=== PATIENT | male | born 1960 | race Caucasian/White ===

== ENCOUNTER 2018-06-26 18:22 | Emergency (ER) | payer OTHER ==
[~2018-06-26] VITALS: Ht 177.8 cm; Wt 95.3 kg
[2018-06-26] MEDS ORDERED: IV NORMAL SALINE 1000ML BAG 1,000 ML IV ONE (18:30)
--- NOTE | 2018-06-26 18:33 | EKG ---
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
--- NOTE | 2018-06-26 18:53 | PHYS DOC ---
Past Medical History Additional Past Medical Histor: Liver Failure, Hepatitis C Past Medical History Unable to fully obtain due to altered mental status Additional Past Surgical Histo: TIPS procedure Past Surgical History Unable to fully obtain due to altered mental status Social History Unable to fully obtain due to altered mental status Adult General Chief Complaint Chief Complaint: ALTERED MENTAL STATUS HPI HPI 58-year-old male presents via EMS for altered mental status. Patient apparently was supposed to be transferred to but was diverted to [facility] due to patient becoming combative. EMS reportedly gave 5 mg of Versed prior to arrival. EMS reports patient with history of elevated liver enzymes and has been acting similar to prior episodes when his ammonia level is elevated. No history of known trauma. Patient extremely poor historian due to obtunded state. History of present illness limited. Review of Systems Review of Systems Neurologic: Reports altered mental status[] Review of systems limited due to obtunded state and altered mental status. Current Medications Current Medications Current Medications Medications (Trade) Dose Ordered Sig/Nichole Start Time Stop Time Status Last Admin Dose Admin Lactulose (Lactulose) 30 gm 1X ONCE 06/26/18 20:00 06/26/18 20:09 DC Ondansetron HCl (Zofran) 4 mg 1X ONCE 06/26/18 20:00 06/26/18 20:09 DC 06/26/18 21:34 4 MG Potassium Chloride/Water 100 ml @ 100 mls/hr 1X ONCE 06/26/18 22:00 06/26/18 22:59 06/26/18 21:37 100 MLS/HR Potassium Chloride (KCl Oral Soln) 40 meq 1X ONCE 06/26/18 20:00 06/26/18 20:09 DC Sodium Chloride 1,000 ml @ 1,000 mls/hr 1X ONCE 06/26/18 18:30 06/26/18 19:29 DC 06/26/18 19:54 1,000 MLS/HR Allergies Allergies Allergies Coded Allergies Type Severity Reaction Last Updated Verified morphine Adverse Reaction Intermediate PERSONALITY CHANGES 06/26/18 Yes Physical Exam Physical Exam Constitutional: Well developed, well nourished, obtunded state HENT: Normocephalic, atraumatic, oropharynx dry Eyes: Pupils dilated, conjunctiva normal, no discharge. [] Neck: Normal range of motion, no tenderness, supple Cardiovascular: Heart rate regular rhythm Lungs & Thorax: Bilateral breath sounds clear to auscultation; no respiratory distress, no rales Abdomen: Soft, obese, no tenderness Skin: Warm, dry, venous stasis discoloration noted to bilateral lower extremities Extremities: 2+ pitting edema bilateral lower extremities Neurologic: Obtunded/sedated s/p Versed administration by EMS, Moves all 4 extremities Current Patient Data Vital Signs Vital Signs Date Time Temp Pulse Resp B/P (MAP) Pulse Ox O2 Delivery O2 Flow Rate FiO2 06/26/18 21:16 68 10 97 06/26/18 18:29 98.8 126/59 (81) Nasal Cannula 2.0 98.8 Lab Values Laboratory Tests Test 06/26/18 18:36 06/26/18 18:45 06/26/18 20:40 Glucose (Fingerstick) 94 mg/dL (70-99) White Blood Count 6.8 x10^3/uL (4.0-11.0) Red Blood Count 4.29 x10^6/uL (4.30-5.70) L Hemoglobin 14.7 g/dL (13.0-17.5) Hematocrit 42.0 % (39.0-53.0) Mean Corpuscular Volume 98 fL (79-100) Mean Corpuscular Hemoglobin 34 pg (25-35) Mean Corpuscular Hemoglobin Concent 35 g/dL (31-37) Red Cell Distribution Width 17.0 % (11.5-14.5) H Platelet Count 81 x10^3/uL (140-400) L Neutrophils (%) (Auto) 75 % (31-73) H Lymphocytes (%) (Auto) 14 % (24-48) L Monocytes (%) (Auto) 9 % (0-9) Eosinophils (%) (Auto) 3 % (0-3) Basophils (%) (Auto) 0 % (0-3) Neutrophils # (Auto) 5.1 x10^3uL (1.8-7.7) Lymphocytes # (Auto) 0.9 x10^3/uL (1.0-4.8) L Monocytes # (Auto) 0.6 x10^3/uL (0.0-1.1) Eosinophils # (Auto) 0.2 x10^3/uL (0.0-0.7) Basophils # (Auto) 0.0 x10^3/uL (0.0-0.2) Prothrombin Time 15.6 SEC (11.7-14.0) H Prothrombin Time INR 1.3 (0.8-1.1) H PTT 33 SEC (24-38) Sodium Level 143 mmol/L (136-145) Potassium Level 2.2 mmol/L (3.5-5.1) *L Chloride Level 101 mmol/L (98-107) Carbon Dioxide Level 34 mmol/L (21-32) H Anion Gap 8 (6-14) Blood Urea Nitrogen 31 mg/dL (8-26) H Creatinine 2.1 mg/dL (0.7-1.3) H Estimated GFR (Cockcroft-Gault) 32.7 BUN/Creatinine Ratio 15 (6-20) Glucose Level 107 mg/dL (70-99) H Lactic Acid Level 2.2 mmol/L (0.4-2.0) H Calcium Level 9.6 mg/dL (8.5-10.1) Magnesium Level 2.2 mg/dL (1.8-2.4) Total Bilirubin 1.9 mg/dL (0.2-1.0) H Aspartate Amino Transferase (AST) 31 U/L (15-37) Alanine Aminotransferase (ALT) 24 U/L (16-63) Alkaline Phosphatase 122 U/L (46-116) H Ammonia 170 mcmol/L (11-34) H Creatine Kinase 134 U/L (39-308) Creatine Kinase MB (Mass) 2.6 ng/mL (0.0-3.6) Creatine Kinase MB Relative Index 1.9 % (0-4) Troponin I Quantitative 0.041 ng/mL (0.000-0.055) WE-Ufe-O-Type Natriuretic Peptide 800 pg/mL (0-124) H Total Protein 6.9 g/dL (6.4-8.2) Albumin 3.1 g/dL (3.4-5.0) L Albumin/Globulin Ratio 0.8 (1.0-1.7) L Urine Color Sada Urine Clarity Clear Urine pH 5.5 Urine Specific [place] 1.020 Urine Protein Negative mg/dL (NEG-TRACE) Urine Glucose (UA) Negative mg/dL (NEG) Urine Ketones (Stick) Negative mg/dL (NEG) Urine Blood Negative (NEG) Urine Nitrite Negative (NEG) Urine Bilirubin Negative (NEG) Urine Urobilinogen Dipstick 1.0 mg/dL (0.2 mg/dL) Urine Leukocyte Esterase Negative (NEG) Urine RBC 0 /HPF (0-2) Urine WBC Occ /HPF (0-4) Urine Squamous Epithelial Cells Occ /LPF Urine Bacteria 0 /HPF (0-FEW) Urine Hyaline Casts Moderate /HPF Laboratory Tests 06/26/18 18:45 Laboratory Tests 06/26/18 18:45 EKG EKG @1826 on 06/26/18: NSR at 96bpm with frequent PVCs, wide QRS, NO ST elevation, No prior EKG per review for comparison. Radiology/Procedures Radiology/Procedures PROCEDURE: CT HEAD WO CONTRAST PQRS Compliance statement: One or more of the following individualized dose reduction techniques were utilized for this examination: 1. Automated exposure control. 2. Adjustment of the mA and/or kV according to patient size. 3. Use of iterative reconstruction technique. Indication:AMS ON LIVER TRANSPLANT LIST AT [facility] TECHNIQUE: CT head without IV contrast COMPARISON:08/29/2009 FINDINGS: No pathologic extra-axial or intra-axial fluid collection. The ventricles and basal cisterns are within normal limits. No acute intracranial bleed. No focal loss of nam-white differentiation. No suspicious calvarial lesion. There is mild mucoperiosteal thickening seen in the frontal and ethmoid air cells. Rest of the paranasal sinuses and mastoid air cells are clear. Orbits within normal limits. IMPRESSION: No acute intracranial process. If concern for acute ischemic stroke is high, please consider MRI brain. PROCEDURE: PORTABLE CHEST 1V PROCEDURE: PORTABLE CHEST 1V CLINICAL INDICATION: AMS COMPARISON: 04/02/2013 FINDINGS: No pneumothorax identified. Cardiac and mediastinal contours unremarkable. No pulmonary consolidation or acute airspace disease. No acute osseous abnormalities identified. IMPRESSION: No pulmonary consolidation or acute airspace disease. PROCEDURE: CT ABDOMEN PELVIS WO CONTRAST PQRS Compliance statement: One or more of the following individualized dose reduction techniques were utilized for this examination: 1. Automated exposure control. 2. Adjustment of the mA and/or kV according to patient size. 3. Use of iterative reconstruction technique. Indication:N/V NO CONTRAST ON LIVER TRANSPLANT LIST. TECHNIQUE: CT abdomen and pelvis without IV contrast with multiplanar reformats. COMPARISON: None FINDINGS: Limited evaluation of solid abdominal and pelvic organs due to lack of IV contrast. Heart is normal in size. No pericardial or pleural effusion. Coronary artery calcifications. Right basilar subsegmental atelectasis. Findings of cirrhosis with TIPS. Spleen is top normal in size measuring 13 cm. Gallstones noted. No pericholecystic fluid. Noncontrast appearance of the pancreas and adrenals are within normal limits. Nonobstructing bilateral small renal stones. No hydronephrosis. No free pelvic fluid or ascites. No enlarged retroperitoneal or pelvic adenopathy. Diffuse atherosclerotic disease seen of the abdominal aorta. No bowel obstruction. Appendix is not visualized. Evidence of intra-abdominal wall hernia repair with mesh. No pneumoperitoneum. Urinary bladder demonstrates no radiopaque stones. The prostate and seminal vesicles show no large mass. Anastomotic sutures are seen in the small bowel in the anterior abdomen. Small focus of sclerosis is seen in the left acetabulum likely bony island. No suspicious bony lesion. IMPRESSION: Limited exam due to lack of IV contrast. 1. Cirrhosis with TIPS. 2. Cholelithiasis without imaging evidence of acute cholecystitis. 3. Bilateral nonobstructing renal stones. Course & Med Decision Making Course & Med Decision Making Pertinent Labs and Imaging studies reviewed. (See chart for details) Patient presents via [facility] with report of altered mental status. He apparently became combative in route to and therefore EMS diverted to [facility] and provided patient with 5 mg of Versed. Patient obtunded upon arrival to the ER. 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 Patient apparently has had a history of similar due to elevated ammonia levels. Spouse called with report that patient had been "throwing up his lactulose ". Abdomen distended but non-peritoneal. Labs obtained and posted to chart. Hypokalemia appreciated. Magnesium within normal limits. BUN/creatinine elevated. Ammonia significantly elevated. Lactic acid elevated. CT head without acute process. CT abdomen/pelvis also without acute process. Chest x-ray clear. Lactulose and potassium provided orally. GCS currently 14. Discussed case with patient's spouse via telephone regarding patient's need for admission. Spouse request that patient be transferred to due to continuity of care as patient normally follows with hepatology. Lactulose ordered. IV and by mouth potassium also ordered. Discussed case with transfer team regarding transfer. Dr. Cecilia Garza at in agreement with transfer for admission. Discussed findings and plan with family, who acknowledges understanding and agreement. Dragon Disclaimer Dragon Disclaimer This electronic medical record was generated, in whole or in part, using a voice recognition dictation system. Departure Departure Impression: Primary Impression: Metabolic encephalopathy Additional Impressions: Hypokalemia Renal insufficiency Disposition: 05 TRANSFER OTHER ([facility]) Condition: GUARDED Referrals: LEIDA BUSH MD (PCP) Critical Care Time Critical care time was 30-74 minutes which includes time at bedside, spent in discussion of patient's care with specialists and/or family members, with interpretation of laboratory and/or radiological studies and is exclusive of procedures. Problem Qualifiers ZHANNA WALLACE DO Jun 26, 2018 18:53
--- NOTE | 2018-06-26 19:04 | RAD ---
PROCEDURE: PORTABLE CHEST 1V CLINICAL INDICATION: AMS COMPARISON: 04/02/2013 FINDINGS: No pneumothorax identified. Cardiac and mediastinal contours unremarkable. No pulmonary consolidation or acute airspace disease. No acute osseous abnormalities identified. IMPRESSION: No pulmonary consolidation or acute airspace disease. Electronically signed by: Carlos Matos DO (06/26/2018 7:00 PM) [facility]
[2018-06-26 19:13] LABS: BASO % 0 % (0-3); EOS # 0.2 x10^3/uL (0.0-0.7); EOS % 3 % (0-3); HEMOGLOBIN 14.7 g/dL (13.0-17.5); LYMPH # 0.9 x10^3/uL (1.0-4.8); LYMPH % 14 % (24-48); MEAN CORPUSCULAR HEMOGLOBIN 34 pg (25-35); MEAN CORPUSCULAR HGB CONC 35 g/dL (31-37); MEAN CORPUSCULAR VOLUME 98 fL (79-100); MONO # 0.6 x10^3/uL (0.0-1.1); MONO % 9 % (0-9); NEUT # 5.1 x10^3uL (1.8-7.7); NEUT % 75 % (31-73); PLATELET COUNT 81 x10^3/uL (140-400); RED BLOOD COUNT 4.29 x10^6/uL (4.30-5.70); WHITE BLOOD COUNT 6.8 x10^3/uL (4.0-11.0)
[2018-06-26 19:14] LABS: PROTHROMBIN TIME PATIENT 15.6 SEC (11.7-14.0)
[2018-06-26 19:20] LABS: ALBUMIN 3.1 g/dL (3.4-5.0); ALBUMIN/GLOBULIN RATIO 0.8 (1.0-1.7); CALCIUM 9.6 mg/dL (8.5-10.1); CREATININE 2.1 mg/dL (0.7-1.3); GFR 32.7; MAGNESIUM 2.2 mg/dL (1.8-2.4); TOTAL BILIRUBIN 1.9 mg/dL (0.2-1.0); TOTAL PROTEIN 6.9 g/dL (6.4-8.2)
[2018-06-26 19:25] LABS: POTASSIUM 2.2 mmol/L (3.5-5.1)
--- NOTE | 2018-06-26 19:50 | RAD ---
PQRS Compliance statement: One or more of the following individualized dose reduction techniques were utilized for this examination: 1. Automated exposure control. 2. Adjustment of the mA and/or kV according to patient size. 3. Use of iterative reconstruction technique. Indication:AMS ON LIVER TRANSPLANT LIST AT [facility] TECHNIQUE: CT head without IV contrast COMPARISON:08/29/2009 FINDINGS: No pathologic extra-axial or intra-axial fluid collection. The ventricles and basal cisterns are within normal limits. No acute intracranial bleed. No focal loss of nam-white differentiation. No suspicious calvarial lesion. There is mild mucoperiosteal thickening seen in the frontal and ethmoid air cells. Rest of the paranasal sinuses and mastoid air cells are clear. Orbits within normal limits. IMPRESSION: No acute intracranial process. If concern for acute ischemic stroke is high, please consider MRI brain. Electronically signed by: Carlos Matos DO (06/26/2018 7:47 PM) [facility]
[2018-06-26] MEDS ORDERED: POTASSIUM CHLORIDE 20 MEQ/15 ML ORAL LIQUID. PO ONE (20:00)
[2018-06-26] MEDS ORDERED: ONDANSETRON PF 4 MG/2 ML VIAL. IV ONE (20:00)
[2018-06-26] MEDS ORDERED: LACTULOSE 20 GM/30 ML SOLUTION. PO ONE (20:00)
[2018-06-26 20:48] LABS: BILIRUBIN,URINE NEGATIVE (NEG); CLARITY,URINE CLEAR; COLOR,URINE AMBER; NITRITE,URINE NEGATIVE (NEG); PH,URINE 5.5; PROTEIN,URINE NEGATIVE (NEG-TRACE)
[2018-06-26 20:57] LABS: BACTERIA,URINE 0 /HPF (0-FEW); HYALINE CASTS, URINE MODERATE /HPF; RBC,URINE 0 /HPF (0-2); SQUAMOUS EPITHELIAL CELL,UR OCC /LPF; WBC,URINE OCC /HPF (0-4)
--- NOTE | 2018-06-26 20:57 | RAD ---
PQRS Compliance statement: One or more of the following individualized dose reduction techniques were utilized for this examination: 1. Automated exposure control. 2. Adjustment of the mA and/or kV according to patient size. 3. Use of iterative reconstruction technique. Indication:N/V NO CONTRAST ON LIVER TRANSPLANT LIST. TECHNIQUE: CT abdomen and pelvis without IV contrast with multiplanar reformats. COMPARISON: None FINDINGS: Limited evaluation of solid abdominal and pelvic organs due to lack of IV contrast. Heart is normal in size. No pericardial or pleural effusion. Coronary artery calcifications. Right basilar subsegmental atelectasis. Findings of cirrhosis with TIPS. Spleen is top normal in size measuring 13 cm. Gallstones noted. No pericholecystic fluid. Noncontrast appearance of the pancreas and adrenals are within normal limits. Nonobstructing bilateral small renal stones. No hydronephrosis. No free pelvic fluid or ascites. No enlarged retroperitoneal or pelvic adenopathy. Diffuse atherosclerotic disease seen of the abdominal aorta. No bowel obstruction. Appendix is not visualized. Evidence of intra-abdominal wall hernia repair with mesh. No pneumoperitoneum. Urinary bladder demonstrates no radiopaque stones. The prostate and seminal vesicles show no large mass. Anastomotic sutures are seen in the small bowel in the anterior abdomen. Small focus of sclerosis is seen in the left acetabulum likely bony island. No suspicious bony lesion. IMPRESSION: Limited exam due to lack of IV contrast. 1. Cirrhosis with TIPS. 2. Cholelithiasis without imaging evidence of acute cholecystitis. 3. Bilateral nonobstructing renal stones. Electronically signed by: Carlos Matos DO (06/26/2018 8:54 PM) [facility]
[2018-06-26 21:16] VITALS: BP 109/58
[2018-06-26] MEDS ORDERED: POTASSIUM CHLORIDE 10MEQ 100 ML IV ONE (22:00)
[2018-06-26 23:04] LABS: AMPHETAMINE/METHAMPHETAMINE NEG (NEG); BARBITURATES NEG (NEG); BENZODIAZEPINES POS (NEG); CANNABINOIDS NEG (NEG); COCAINE NEG (NEG); METHADONE NEG (NEG); OPIATES POS (NEG); PHENCYCLIDINE NEG (NEG)
== END 2018-06-26 22:49 | disposition short-term general hospital (02) ==
LOC: ER 18:22
DX: G93.41 Metabolic encephalopathy (principal); E87.6 Hypokalemia; N18.9 Chronic kidney disease, unspecified; Z88.5 Allergy status to narcotic agent
CPT/HCPCS: 36415; 70450; 71045; 74176; 80053; 80307; 81001; 82140; 82553; 82962; 83605; 83735; 83880; 84484; 85025; 85610; 85730; 93005; 96361; 96365; 96375; 99291; J2405; J3480; J7030; 99285-25; G0479